=== PATIENT | male | born 1950 | race Caucasian/White ===

== ENCOUNTER 2017-12-02 17:11 | Emergency (ER) | payer OTHER, MEDICARE ==
--- NOTE | 2017-12-02 17:42 | CPEKG ---
Heart Rate: 72 RR Interval: 833 QRSD Interval: 130 QT Interval: 424 QTC Interval: 465 QRS [place]: -53 T Wave [place]: 54 EKG Severity - ABNORMAL ECG - EKG Impression: LEFT BUNDLE BRANCH BLOCK Electronically Signed By: Lennox Babin 02-Dec-2017 20:30:03
--- NOTE | 2017-12-02 18:37 | EDPHY ---
HPI/HX/ROS/PE/MDM Narrative: CHIEF COMPLAINT: Shortness of breath, cough HPI: The patient is a 67 y/o male with a history of a cardiac stent (2005), PKD, and pneumonia complaining of shortness of breath, a cough associated with sputum, and chills. In August, the patient was diagnosed with bronchitis so he was prescribed antibiotics. After starting the antibiotics, his symptoms improved but never fully resolved. He recently saw his boardinghouse keeper, who noticed that the patient's O2Sats were low, so he was scheduled to have a chest x-ray. The patient has not had this chest x-ray yet. Yesterday his symptoms worsened and he was unable to preform simple tasks due to the shortness of breath. Denies headache, numbness, paresthesias, chest pain, urinary or bowel complaints , fever. REVIEW OF SYSTEMS: Aside from elements discussed in the HPI, a comprehensive 10-point review of systems was reviewed and is negative. PMH: Cardiac stent (2005, followed by Dr. Hurt, gaming cage worker), pneumonia, PKD , cholecystectomy SOCIAL HISTORY: Retired electrical repairer, lives in [facility] PHYSICAL EXAM: General: Patient is alert, in no acute distress. ENT: Eyes are normal to inspection. ENT inspection normal. Neck: Normal inspection. Full range of motion. Respiratory: Hypoxic on 4L room air. Mild wheeze with relatively poor air movement bilaterally. Cardiovascular: Regular rate and rhythm. Strong peripheral pulses. Normal cap refill. Abdomen: The abdomen is nontender to palpation. There are no peritoneal signs. There are normal bowel sounds. Back: Normal to inspection. No tenderness to palpation. Skin: Normal color. No rash. Warm and dry. Extremities: Normal appearance. Full range of motion. Neuro: Oriented x3. Normal motor function. Normal sensory function. ED Course: 1812: EKG was ordered and interpreted by myself. Please see [facility] system for official reading. 0: Patient chest x-ray reveals hyperexpanded lungs with interstitial prominence. Chest CTA ordered. Troponin is still pending at this time. 2004: I reviewed patient's chest CTA, radiologist reading still pending. 2019: Spoke with Dr. Jhaveri, radiologist, who reports that there is no PE or pneumonia on patient's chest CTA. 2020: Reassessed patient and discussed imaging and laboratory findings. He is still feeling short of breath and hypoxic; DuoNeb administered. 2100: Reassessed patient, he remains to have O2Sats of 93 while on room air after receiving the DuoNeb. Patient is most likely having a COPD exacerbation. I have prescribed him Azithromycin and Prednisone. I have advised him to follow up with his PCP in the next 72 hours. Return precautions provided; patient is comfortable with this plan. MDM: This patient presents with cough and hypoxia. CXR and CTA are negative for PE, PNA, PTX, TAD. Patient had significant improvement with nebulizer here in the ED. I suspect this likely represents exacerbation of undiagnosed COPD. He is comfortable with plan for prednisone, antibiotics and MDI as an outpatient. As his O2 level has improved and this process has been present for at least a week , I think he is likely safe for further outpatient management. There is no clear indication for admission. I see no signs of ACS, sepsis. - Data Points Imaging Results: Imaging Impressions Chest X-Ray 12/02/17 18:45 Impression: Hyperexpanded lungs with interstitial prominence, which could be related to COPD or emphysema. Chest/Thorax CTA 12/02/17 19:39 Impression: 1. No visible pulmonary embolus. 2. Emphysema, with a 4 mm noncalcified left lower lobe nodule. For a nodule of this size, unenhanced chest CT follow up in one year is considered optional per Fleischner Society guidelines. 3. Three-vessel coronary artery atherosclerosis. 4. Incomplete visualization of polycystic kidneys, suboptimally assessed on this study. 5. Cholelithiasis. 6. Mild dilatation of the ascending aorta, without dissection. 7. Additional findings, as above. Findings discussed with Lennox Babin M.D., on December 02, 2017 at 2017. E:amm Imaging: Discussed imaging studies w/ call center associate Radiologist, I viewed and interpreted images myself Laboratory Results: Laboratory Results 12/02/17 18:40 12/02/17 18:40 12/02/17 12/02/17 12/02/17 19:24 18:40 18:40 WBC RBC Hgb Hct MCV MCH MCHC RDW Plt Count MPV Neut % (Auto) Lymph % (Auto) [place] % (Auto) Eos % (Auto) Baso % (Auto) Nucleat RBC Rel Count Absolute Neuts (auto) Absolute Lymphs (auto) Absolute Monos (auto) Absolute Eos (auto) Absolute Basos (auto) Absolute Nucleated RBC Immature Gran % Immature Gran # RBC/WBC/PLT Morphology Platelet Estimate D-Dimer VBG Lactic Acid 1.1 mmol/L mmol/L (0.7-2.1) Sodium 129 mEq/L L mEq/L (135-145) Potassium 4.1 mEq/L mEq/L (3.3-5.0) Chloride 95 mEq/L L mEq/L (97-110) Carbon Dioxide 24 mEq/l mEq/l (22-31) Anion Gap 10 mEq/L mEq/L (8-16) BUN 6 mg/dL L mg/dL (7-23) Creatinine 0.5 mg/dL L mg/dL (0.7-1.3) Estimated GFR > 60 Glucose 88 mg/dL mg/dL (70-100) Calcium 9.2 mg/dL mg/dL (8.5-10.4) POC Troponin I 0.00 ng/mL ng/mL (0.00-0.08) NT-Pro-B Natriuret Pep 315 pg/mL H pg/mL (0-125) 12/02/17 12/02/17 18:40 18:40 WBC 6.33 10^3/uL 10^3/uL (3.80-9.50) RBC 4.97 10^6/uL 10^6/uL (4.40-6.38) Hgb 18.0 g/dL H g/dL (13.7-17.5) Hct 47.8 % % (40.0-51.0) MCV 96.2 fL fL (81.5-99.8) MCH 36.2 pg H pg (27.9-34.1) MCHC 37.7 g/dL H g/dL (32.4-36.7) RDW 13.0 % % (11.5-15.2) Plt Count 161 10^3/uL 10^3/uL (150-400) MPV 9.0 fL fL (8.7-11.7) Neut % (Auto) 71.3 % % (39.3-74.2) Lymph % (Auto) 16.6 % % (15.0-45.0) [place] % (Auto) 10.0 % % (4.5-13.0) Eos % (Auto) 1.3 % % (0.6-7.6) Baso % (Auto) 0.5 % % (0.3-1.7) Nucleat RBC Rel Count 0.0 % % (0.0-0.2) Absolute Neuts (auto) 4.52 10^3/uL 10^3/uL (1.70-6.50) Absolute Lymphs (auto) 1.05 10^3/uL 10^3/uL (1.00-3.00) Absolute Monos (auto) 0.63 10^3/uL 10^3/uL (0.30-0.80) Absolute Eos (auto) 0.08 10^3/uL 10^3/uL (0.03-0.40) Absolute Basos (auto) 0.03 10^3/uL 10^3/uL (0.02-0.10) Absolute Nucleated RBC 0.00 10^3/uL 10^3/uL (0-0.01) Immature Gran % 0.3 % % (0.0-1.1) Immature Gran # 0.02 10^3/uL 10^3/uL (0.00-0.10) RBC/WBC/PLT Morphology NORMAL (NORMAL) Platelet Estimate ADEQUATE (ADEQ) D-Dimer 0.64 ug/mLFEU H ug/mLFEU (0.00-0.50) VBG Lactic Acid Sodium Potassium Chloride Carbon Dioxide Anion Gap BUN Creatinine Estimated GFR Glucose Calcium POC Troponin I NT-Pro-B Natriuret Pep Medications Given: Discontinued Medications Albuterol/Ipratropium (Duoneb) 3 ml IH EDNOW ONE Stop: 12/02/17 20:23 Last Admin: 12/02/17 20:26 Dose: 3 ml Point of Care Test Results: Chemistry 12/02/17 19:24 POC Troponin I 0.00 ng/mL ng/mL (0.00-0.08) General Time Seen by Provider: 12/02/17 18:37 Initial Vital Signs: Initial Vital Signs Temperature (C) 36.3 C 12/02/17 17:21 Heart Rate 74 12/02/17 17:21 Respiratory Rate 26 H 12/02/17 17:21 Blood Pressure 133/95 H 12/02/17 17:21 O2 Sat (%) 88 L 12/02/17 17:21 O2 Delivery Mode Room Air O2 (L/minute) 4 Allergies/Adverse Reactions: No Known Allergies Allergy (Unverified 12/02/17 17:21) Home Medications: Medication Instructions Recorded Aspirin 81mg (*) 12/02/17 Azithromycin [Zithromax] 250 mg PO DAILY #6 tab 12/02/17 Bystolic 12/02/17 predniSONE 60 mg PO DAILY 5 Days tab 12/02/17 Departure - Departure Disposition: Home, Routine, Self-Care Clinical Impression: Shortness of breath, Cough, Hypoxemia, COPD exacerbation Instructions: Prednisone (By mouth), Azithromycin (By mouth), COPD (Chronic Obstructive Pulmonary Disease) (ED) Additional Instructions: Take Prednisone and Azithromycin as prescribed. Follow-up with your primary doctor within 72 hours. Return to the Emergency Department for fever, chest pain, shortness of breath, increasing pain or other worsening of condition. Referrals: Ernie Hurt MD [Medical Doctor] - As per Instructions Prescriptions: Azithromycin [Zithromax] 250 mg PO DAILY #6 tab predniSONE 60 mg PO DAILY 5 Days tab Report Scribed for: Lennox Babin Report Scribed by: Debbie Ku Date of Report: 12/02/17 Time of Report: 18:38 Physician Review and Approval Statement: Portions of this note were transcribed by an ED scribe. I personally performed the history, physical exam, and medical decision making; and confirm the accuracy of the information in the transcribed note.
[2017-12-02 19:42] LABS: PLATELET COUNT 161 10^3/uL (150-400)
[2017-12-02] MEDS ORDERED: IOPAMIDOL (ISOVUE 370) 100 ML BTL IV ONE (19:43)
[2017-12-02] MEDS ORDERED: IPRATROPIUM/ALBUTEROL 3 ML DEYVIAL IH ONE (20:22)
[2017-12-02] MEDS ORDERED: ALBUTEROL INH PREPACK MDI TAKEHOME ONE (21:00)
[2017-12-02] MEDS ORDERED: predniSONE 20 MG TAB PO ONE (21:01)
[2017-12-02 21:18] VITALS: BP 142/107
== END 2017-12-02 21:36 | disposition home or self-care (01) ==
DX: J44.1 Chronic obstructive pulmonary disease with (acute) exacerbation (principal); R09.02 Hypoxemia; Z79.82 Long term (current) use of aspirin; Z95.5 Presence of coronary angioplasty implant and graft
CPT/HCPCS: 71046; 71275; 93005; 99285; J7512; Q9967; 84484-PO